=== PATIENT | female | born 1940 | race Caucasian/White ===

== ENCOUNTER 2016-07-27 10:32 | Emergency (ER) | payer MEDICARE ==
[2016-07-27 12:21] VITALS: BP 112/47
--- NOTE | 2016-07-27 12:37 | UC ---
Abdominal Pain Female HPI - HPI Summary HPI Summary: Patient has had 2 days of loose watery stool accompanied by fever. SHe has not eaten solid food since , she is able to keep liquids down. - History of Current Complaint Chief Complaint: UCGI Stated Complaint: DIARRHEA Time Seen by Provider: 07/27/16 12:18 Hx Obtained From: Patient ?: No Onset/Duration: Sudden Onset, Lasting Days Timing: Constant Severity Initially: Moderate Severity Currently: Moderate Location: Diffuse - lower abdominal pain, Discrete At: RUQ Character: Cramping, Dull Aggravating Factor(s): Food Alleviating Factor(s): Nothing Associated Signs and Symptoms: Positive: Fever, Decreased Appetite, Diarrhea Allergies/Adverse Reactions: Allergies Allergy/AdvReac Type Severity Reaction Status Date / Time Amoxicillin Allergy Unknown Verified 07/27/16 11:14 Reaction Details Home Medications: Home Medications Acetaminophen [Eq Acetaminophen] 650 mg PO 07/27/16 [History] Loperamide CAP* [Imodium CAP*] 2 mg PO Q4H PRN 07/27/16 [History Confirmed 07/27] PMH/Surg Hx/FS Hx/Imm Hx Previously Healthy: Yes Cancer History Of: Denies: Breast Cancer - Surgical History Surgical History: Yes Surgery Procedure, Year, and Place: [id number] SURGERIES FOR - Social History Alcohol Use: Rare Substance Use Type: None Smoking Status (MU): Never Smoked Tobacco Review of Systems Constitutional: Fever, Fatigue Skin: Negative Eyes: Negative ENT: Negative Respiratory: Negative Cardiovascular: Negative Gastrointestinal: Abdominal Pain, Diarrhea Genitourinary: Negative Motor: Negative Neurovascular: Negative Musculoskeletal: Negative Neurological: Negative Psychological: Negative All Other Systems Reviewed And Are Negative: Yes Physical Exam Triage Information Reviewed: Yes Appearance: Well-Nourished, Ill-Appearing, Pain Distress Vital Signs: Initial Vital Signs Temp 98.9 F 07/27/16 11:08 Pulse 70 07/27/16 11:08 Resp 18 07/27/16 11:08 BP 111/59 07/27/16 11:08 Pulse Ox 97 07/27/16 11:08 Vital Signs Reviewed: Yes Eye Exam: Normal Eyes: Positive: Conjunctiva Clear ENT Exam: Normal ENT: Positive: Hearing grossly normal, Pharynx normal, TMs normal Dental Exam: Normal Neck exam: Normal Neck: Positive: Supple, Nontender, No Lymphadenopathy Respiratory Exam: Normal Respiratory: Positive: Chest non-tender, Lungs clear, Normal breath sounds Cardiovascular Exam: Normal Cardiovascular: Positive: RRR, No Murmur, Pulses Normal Abdomen Description: Positive: Other: - RUQ tenderness, palpable liver edge Bowel Sounds: Positive: Present Musculoskeletal Exam: Normal Musculoskeletal: Positive: Strength Intact, ROM Intact, No Edema Neurological Exam: Normal Neurological: Positive: Alert, Muscle Tone Normal Psychological Exam: Normal Skin Exam: Normal Abd Pain Female Course/Dx - Course Course Of Treatment: hx obtained, exam performed, meds reviewed, UA obtained, Stool culture sent, +guiac, stool was very bloody, liquid and lots of mucous, treated for diverticulitis. educated patient on disease process, recommend follow up with PCP at the beginning of next week, patient is in agreement. - Differential Dx/Diagnosis Differential Diagnosis: Appendicitis, Bowel Obstruction, Constipation, Diverticulitis, Gall Bladder Disease, Hepatitis, Irritable Bowel Syndrome Provider Diagnoses: diverticulitis. dehydration. fever Discharge - Discharge Plan Condition: Stable Disposition: HOME Patient Education Materials: Diverticulitis (ED), Diverticulitis Diet (ED) Additional Instructions: 1. Take the medication as prescribed. 2. Increase fluid intake and get plenty of rest 3. Continue to take your probiotic 4. Follow up with Dr. Uribe at the beginning of next week 5. We grover a CBC ( complete blood count) CMP ( for your elecrolyte level) Stool culture was sent
[2016-07-28 13:47] LABS: Hematocrit 40 % (35-47); Hemoglobin 13.7 g/dl (12.0-16.0); Mean Corpuscular HGB Conc 34 g/dl (31-36); Mean Corpuscular Hemoglobin 32 pg (27-31); Mean Corpuscular Volume 94 fL (80-97); Mean Platelet Volume 10 um3 (7.4-10.4); Red Blood Count 4.29 10^6/ul (4.0-5.4); Red Cell Distribution Width 13 % (10.5-15); White Blood Count 3.3 10^3/ul (3.5-10.8)
[2016-07-28 13:49] LABS: Add Diff/Slide Review? Slide Review Added; Comments Flag Yes
== END 2016-07-27 13:45 | disposition home or self-care (01) ==
LOC: UCEAST 10:32
DX: K57.92 Diverticulitis of intestine, part unspecified, without perforation or abscess without bleeding (principal); E86.0 Dehydration; R50.9 Fever, unspecified; Z88.1 Allergy status to other antibiotic agents
CPT/HCPCS: 36415; 80053; 81003; 82270; 85025; 87045; 87046; 87077; 87899; 99212; G0463

== ENCOUNTER 2016-08-10 10:25 | Emergency (ER) | payer MEDICARE ==
--- NOTE | 2016-08-10 11:40 | ED ---
Abdominal Pain/Female - HPI Summary HPI Summary: 76F presents with diarrhea for 2 weeks. She states diarrhea started after returning for [place]. see as seen at urgent care where stool cultures came back positive for salmonella so she was treated with cipro. Initially they thought she had diverticulitis so started on cipro and flagyl. told to stop flagyl after got culture. admits to fever 99-101. denies any nausea or vomiting. States only has pain when has bowel movement. spoke with dr myrick 5 days ago and started on imodium. States that while was taking antibiotic felt better but then after stopped symptoms got worst. She states her stool is full of mucus and foul smelling. She admits to decrease in appetite. - History of Current Complaint Chief Complaint: EDBrenda Stated Complaint: FEVER/ABD PAIN Time Seen by Provider: 08/10/16 11:26 Pain Intensity: 2 Allergies/Adverse Reactions: Allergies Allergy/AdvReac Type Severity Reaction Status Date / Time Amoxicillin Allergy Unknown Verified 07/27/16 11:14 Reaction Details PMH/Surg Hx/FS Hx/Imm Hx Endocrine/Hematology History: Denies: Hx Diabetes Cardiovascular History: Denies: Hx Hypertension Sensory History: Reports: Hx Cataracts - BILATERAL, Hx Contacts or Glasses - GLASSES Denies: Hx Hearing Aid Opthamlomology History: Reports: Hx Cataracts - BILATERAL, Hx Contacts or Glasses - GLASSES - Cancer History Hx Chemotherapy: No Hx Radiation Therapy: No - Surgical History Surgery Procedure, Year, and Place: [id number] SURGERIES FOR Hx Anesthesia Reactions: No Infectious Disease History: No Infectious Disease History: Denies: Traveled Outside the [place] in Last 30 Days - Family History Known Family History: Positive: Other - no h/o of uc and crohns - Social History Alcohol Use: Rare Substance Use Type: Reports: None Smoking Status (MU): Never Smoked Tobacco Review of Systems Negative: Fever Negative: Chest Pain Negative: Shortness Of Breath Positive: Abdominal Pain - when has BM, Diarrhea. Negative: Vomiting, Nausea Negative: dysuria, flank pain All Other Systems Reviewed And Are Negative: Yes Physical Exam Triage Information Reviewed: Yes Vital Signs On Initial Exam: Initial Vitals Temp Pulse Resp BP Pulse Ox 100.6 F 79 24 128/94 100 08/10/16 10:26 08/10/16 10:26 08/10/16 10:26 08/10/16 10:26 08/10/16 10:26 Vital Signs Reviewed: Yes Appearance: Positive: Well-Appearing Skin: Positive: Warm, Dry Head/Face: Positive: Normal Head/Face Inspection Eyes: Positive: Normal, Conjunctiva Clear ENT: Positive: Normal ENT inspection, Pharynx normal, TMs normal, Other - dry mucous membranes Respiratory/Lung Sounds: Positive: Clear to Auscultation, Breath Sounds Present Cardiovascular: Positive: Normal, RRR Abdomen Description: Positive: Nontender, Soft Bowel Sounds: Positive: Present Diagnostics - Vital Signs Vital Signs Temp Pulse Resp BP Pulse Ox 08/10/16 10:26 100.6 F 79 24 128/94 100 - Laboratory Result Diagrams: 08/10/16 11:40 08/10/16 11:40 Lab Statement: Any lab studies that have been ordered have been reviewed, and results considered in the medical decision making process. - CT abdomen CT Interpretation: Positive (See Comments) - IMPRESSION: 1. CHOLELITHIASIS. 2. MILD BILIARY DILATATION. 3. LARGE AMOUNT OF STOOL WITHIN THE DISTAL COLON, WITH A RELATIVELY FEATURELESS PROXIMAL AND MID COLON WHICH MAY REFLECT COLITIS. 4. 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 CT Interpretation Completed By: Radiologist Re-Evaluation - Re-Evaluation First Eval Re-Evaluation Time: 13:15 Change: Worse Comment: having rigors with temp, will give tyenlol Abdominal Pain Fem Course/Dx - Course Course Of Treatment: 76F presents with diarrhea for a two weeks. initally had samonella and was treated with cipro and seemed to feel better but then diarrhea got worst. was placed on imodium by dr myrick 5 days. admits to fever. Denies any nausea or vomiting. on exam abdomen nontender. labs: 12.9, normal kidney function, c difficule positive, CT shows stool and cholelithasis. no RUQ pain on exam. had fever 102 in ED gave Tyenlol and temp 99.9. BP went 129/73 to 115/47 after 2 lit[address] IV[address] with [address] billingsley and said talk to hosiptalist. Dr Hernandez will see in ED. dr hernandez recommends d/c home. will send home on flagyl. patient understands and agrees with plan - Diagnoses Differential Diagnosis: Positive: Diverticulitis, Urinary Tract Infection, Other - c difficle Provider Diagnoses: Clostridium difficile colitis Discharge - Discharge Plan Condition: Good Disposition: HOME Prescriptions: Metronidazole [Flagyl 500 MG TAB] 500 mg PO TID #27 tab traMADol TAB* [Ultram*] 25 mg PO Q6HR PRN #16 tab MDD 4 PRN Reason: Pain Patient Education Materials: Clostridium Difficile Infection (ED) Referrals: Raffy Uribe MD [Primary Care Provider] - Additional Instructions: Stop imodium Take flagyl three times a day for 14 days, first dose given in ED Wash hands frequently, hand sanitize does not work Take Tylenol for pain every 6 hours, use tramadol for severe pain ever 6 hours as needed Drink plenty of fluids, can try some pedialyte for electrolytes Follow up with primary within 7 days Return to ED if develop profuse vomiting, or any new or worsening symptoms
[2016-08-10 11:49] LABS: Hematocrit 40 % (35-47); Hemoglobin 13.2 g/dl (12.0-16.0); Mean Corpuscular HGB Conc 33 g/dl (31-36); Mean Corpuscular Hemoglobin 31 pg (27-31); Mean Corpuscular Volume 93 fL (80-97); Mean Platelet Volume 9 um3 (7.4-10.4); Red Blood Count 4.27 10^6/ul (4.0-5.4); Red Cell Distribution Width 13 % (10.5-15); White Blood Count 12.1 10^3/ul (3.5-10.8)
[2016-08-10] MEDS: NS 0.9% 1000 ML* 2,000 ML IV ONE (11:55)
[2016-08-10 12:07] LABS: Albumin 3.8 g/dL (3.2-5.2); BUN/Creatinine Ratio 16.5 (8-20); Calcium 8.9 mg/dL (8.6-10.3); EGFR African American 84.1 (>60); EGFR Non-African American 65.4 (>60); Globulin 3.2 g/dL (2-4); Potassium 4.1 mmol/L (3.5-5.0); Total Bilirubin 0.9 mg/dL (0.2-1.0)
[2016-08-10] MEDS ORDERED: Iohexol 300* (CONTRAST) 10 ML SDV IV ONE (12:44)
[2016-08-10] MEDS ORDERED: Acetaminophen TAB* 325 MG PO ONE (12:44)
--- NOTE | 2016-08-10 14:25 | RAD ---
CLINICAL HISTORY: Persistent diarrhea, lower abdominal pain COMPARISON: None TECHNIQUE: Multiple contiguous axial CT scans were obtained of the abdomen and pelvis after the administration of intravenous contrast. Coronal and sagittal multiplanar reformations are submitted for review. Oral contrast was administered. Delayed images were obtained through the abdomen and pelvis. FINDINGS: LUNG BASES: The lung bases are clear. LIVER: The liver is normal in shape, size, contour, and attenuation. BILE DUCTS: There is mild ectasia of the common duct with minimal intrahepatic biliary dilatation. GALLBLADDER: The gallbladder is distended. A gallstone is noted. There is no pericholecystic inflammatory change. PANCREAS: The pancreas is normal, without mass or ductal dilatation. SPLEEN: Normal in size and appearance. UPPER GI TRACT: Evaluation of the gastrointestinal tract is limited by incomplete gastric distention. The upper GI tract is unremarkable. SMALL BOWEL AND MESENTERY: The small bowel is normal in contour, course, and caliber. There is no obstruction or dilatation. COLON: There is a large amount of stool within the distal colon. The mid and proximal colon are relatively featureless, filled with liquid stool ADRENALS: Normal bilaterally. KIDNEYS: The kidneys are normal in shape, size, contour, and axis. There is no hydronephrosis or nephrolithiasis. BLADDER: The bladder is smooth in contour. PELVIC ORGANS: There is prominence of vascularity along the broad ligaments bilaterally with enlargement of the gonadal veins bilaterally, greater on the left than on the right. AORTA: There is mild atherosclerosis. IVC: Unremarkable LYMPH NODES: There is no lymphadenopathy by size criteria. ABDOMINAL WALL: There is no evidence for abdominal wall hernia. BONES AND SOFT TISSUES: There are mild diffuse degenerative changes. OTHER: None IMPRESSION: 1. CHOLELITHIASIS. 2. MILD BILIARY DILATATION. 3. LARGE AMOUNT OF STOOL WITHIN THE DISTAL COLON, WITH A RELATIVELY FEATURELESS PROXIMAL AND MID COLON WHICH MAY REFLECT COLITIS. 4. 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
[2016-08-10] MEDS ORDERED: metroNIDAZOLE TAB* 250 MG PO ONE (14:51)
[2016-08-10 15:08] VITALS: BP 115/47
--- NOTE | 2016-08-10 16:03 | CONSULT ---
Subjective Date of Service: 08/10/16 Interval History: 76 yo F with hx of dementia, GERD, depression p/w diarrhea, fever and abdominal pain. Patient had diarrhea with some blood mixed in and was seen at on 07/27. It was felt she may have diverticulitis and she was rx Cipro/Flagyl. Her stool cx then came back with salmonella so the flagyl was stopped (reportedly only took one dose) and the Cipro was continued. She had some improvement in her diarrhea and completed the course however over the last few days she has had worsening diarrhea, abdominal pain. She was rx Imodium for the diarrhea but symptoms worsened. Here in the ED she was diagnosed with C diff and CT scan showed some retained stool in the colon along with signs of colitis. She has been able to tolerate liquids, little food intake, no N/V. Family History: Findings - Unremarkable Social History: Findings - No hx of tobacco, EtOH or drug use Past Medical History: Findings - Early onset dementia, GERD, depression Review of Systems - Measurements Intake and Output: Intake and Output Last 24 Hours 08/08/16 08/09/16 08/10/16 08/11/16 06:59 06:59 06:59 06:59 Intake Total 1999 Balance 1999 Weight 52.163 kg Intake: IV Fluids 1999 Other: Date of Last Bowel t Movement - Review of Systems Constitutional Symptoms: Positive: Fever Dermatology: Positive: Normal HEENT: Positive: Normal Eyes: Positive: Normal Thyroid: Positive: Normal Pulmonary: Positive: Normal Cardiology: Positive: Normal Gastroenterology: Positive: Abdominal Pain, Diarrhea Negative: Nausea, Vomiting Genital - Urinary: Positive: Normal Musculoskeletal: Negative: Joint Pain Endocrinology: Positive: Normal Hematologic/Lymphatic: Negative: Anemia Neurology: Positive: Normal Psychiatry: Positive: Normal Objective Vital Signs 08/10/16 08/10/16 08/10/16 10:26 12:00 12:29 Temperature 100.6 F 102 F 100.2 F Pulse Rate 79 Respiratory 24 Rate Blood Pressure 128/94 (mmHg) O2 Sat by Pulse 100 Oximetry 08/10/16 08/10/16 08/10/16 12:45 14:22 15:07 Temperature 102.4 F 101.8 F 99.9 F Pulse Rate 57 Respiratory 16 Rate Blood Pressure 115/47 (mmHg) O2 Sat by Pulse 99 Oximetry Oxygen Devices in Use Now: None Appearance: Elderly, F, laying in bed in NAD Eyes: No Scleral Icterus Ears/Nose/Mouth/Throat: Mucous Membranes Moist Neck: NL Appearance and Movements; NL JVP Respiratory: Symmetrical Chest Expansion and Respiratory Effort, Clear to Auscultation Cardiovascular: NL Sounds; No Murmurs; No JVD, RRR Abdominal: - - Soft, non-distended, mild TTP in lower quadrants, BS+, no rebound /guarding Lymphatic: No Cervical Adenopathy Extremities: No Edema Skin: No Rash or Ulcers Neurological: Alert and Oriented x 3 Result Diagrams: 08/10/16 11:40 08/10/16 11:40 Microbiology and Other Data: Microbiology 08/10/16 12:25 C. difficile DNA Amplification - Final Stool 027 Presumptive NEGATIVE Toxigenic C.diff POSITIVE 08/10/16 12:25 Stool Gross Appearance - Final Stool 08/10/16 12:25 Stool Occult Blood (MIGUEL) - Final Stool Assessment/Plan - Billing C diff colitis in a 76 yo F with hx of early onset dementia, GERD, depression with recent treatment for salmonella. I think the patient likely developed C diff after the course of Cipro and then symptoms likely worsened with the addition of Imodium. Patient seems to be keeping up with intake as evidenced by her relatively normal labs and vitals. No significant leukocytosis. I do not think she needs admission at this time as long as she can keep up with her stool output. Would treat with 2 weeks of oral Flagyl and STOP imodium. Would send home with analgesic as well.
== END 2016-08-10 16:37 | disposition home or self-care (01) ==
LOC: ED 10:25
DX: A04.7 Enterocolitis due to Clostridium difficile (principal); R10.9 Unspecified abdominal pain; R19.7 Diarrhea, unspecified
CPT/HCPCS: 36415; 74177; 80053; 82272; 83605; 83690; 85025; 86141; 87040; 87045; 87046; 87077; 87493; 87899; 99283; A9270-GY; Q9967

== ENCOUNTER 2016-10-16 16:20 | Emergency (ER) | payer MEDICARE ==
[2016-10-16] MEDS ORDERED: Ondansetron INJ* 2 MG/ML VIAL IV ONE (17:41)
[2016-10-16] MEDS ORDERED: NS 0.9% 1000 ML* 2,000 ML IV ONE (17:41)
[2016-10-16 19:11] LABS: Hematocrit 38 % (35-47); Hemoglobin 12.9 g/dl (12.0-16.0); Mean Corpuscular HGB Conc 34 g/dl (31-36); Mean Corpuscular Hemoglobin 32 pg (27-31); Mean Corpuscular Volume 95 fL (80-97); Mean Platelet Volume 8 um3 (7.4-10.4); Red Blood Count 3.98 10^6/ul (4.0-5.4); Red Cell Distribution Width 14 % (10.5-15); White Blood Count 5.9 10^3/ul (3.5-10.8)
[2016-10-16 19:42] LABS: Albumin 3.8 g/dL (3.2-5.2); BUN/Creatinine Ratio 13.2 (8-20); C Reactive Protein 1.18 mg/L (< 5.00); EGFR African American 108.8 (>60); EGFR Non-African American 84.6 (>60); Globulin 2.8 g/dL (2-4); Potassium 4.1 mmol/L (3.5-5.0); Total Bilirubin 0.4 mg/dL (0.2-1.0); Total Protein 6.6 g/dL (6.4-8.9)
[2016-10-16] MEDS ORDERED: Pantoprazole IV* 40 MG IV ONE (19:42)
[2016-10-16 20:46] LABS: Urine Bacteria Absent (Absent); Urine Bilirubin Negative (Negative); Urine Glucose Negative (Negative); Urine Nitrite Negative (Negative)
[2016-10-16 22:35] VITALS: BP 133/54
--- NOTE | 2016-10-17 05:03 | ED ---
Gladis Zamora Alok, scribed for Prieto Hudson MD on 10/16/16 at 1940 . GI/ HPI - HPI Summary HPI Summary: 76F presents to the ED for N/V since this morning. Pt has been dx with salmonella/C.diff 2 month ago and has been reporting diarrhea, fever, chills since then. Pt also notes epigastric pain since today. Pt states that she has had 5-6 BMs [employer] and states they were dark, black stools. Pt also notes vomiting light colored emesis today. Pt denies CP, SOB. Pt denies blood in stool or [id number] emesis. Pt is currently on bactrim and flagyl for C.diff. Pt states that since her arrival to the ED her abd pain, fever, chills and nausea have significantly improved. PMHx includes h/o salmonella, C.diff, anxiety, and depression. - History of Current Complaint Chief Complaint: EDNauseaVomitDiarrh Stated Complaint: VOMITING-DX CDIFF Hx Obtained From: Patient Onset/Duration: Started Days Ago, Still Present Timing: Constant Severity: Moderate Current Severity: Moderate Pain Intensity: 0 Location of Pain: Epigastric Associated Signs and Symptoms: Positive: Nausea, Vomiting, Diarrhea, Fever, Chills, Abdominal Pain, Other: - black stools. Negative: kowwoi-ebcraw-debl emesis, SOB. Negative: Blood w/Stool, Chest Pain - Allergy/Home Medications Allergies/Adverse Reactions: Allergies Allergy/AdvReac Type Severity Reaction Status Date / Time Amoxicillin Allergy Unknown Verified 07/27/16 11:14 Reaction Details PMH/Surg Hx/FS Hx/Imm Hx Endocrine/Hematology History: Denies: Hx Diabetes Cardiovascular History: Denies: Hx Hypertension History: Denies: Hx Renal Disease Sensory History: Reports: Hx Cataracts - BILATERAL, Hx Contacts or Glasses - GLASSES Denies: Hx Hearing Aid Opthamlomology History: Reports: Hx Cataracts - BILATERAL, Hx Contacts or Glasses - GLASSES - Cancer History Hx Chemotherapy: No Hx Radiation Therapy: No - Surgical History Surgery Procedure, Year, and Place: [id number] SURGERIES FOR Hx Anesthesia Reactions: No Infectious Disease History: No Infectious Disease History: Denies: Traveled Outside the [place] in Last 30 Days - Family History Known Family History: Positive: Other - no h/o of uc and crohns - Social History Occupation: Retired Lives: With Family Alcohol Use: Rare Substance Use Type: Reports: None Smoking Status (MU): Never Smoked Tobacco Review of Systems Positive: Fever, Chills Negative: Chest Pain Negative: Shortness Of Breath Positive: Abdominal Pain, Vomiting, Diarrhea, Nausea, Other - black stools. Negative: Jwgtho-hdjoda-qhau emesis All Other Systems Reviewed And Are Negative: Yes Physical Exam - Summary Physical Exam Summary: The patient is well-nourished in no acute distress and in no acute pain. The skin is warm and dry with decreased skin turgor. HEENT: The head is normocephalic and atraumatic. The pupils are equal and reactive. The conjunctivae not icteric and without drainage. Nares are patent and without drainage. Mouth reveals dry mucous membranes and the throat is without erythema and exudate. Neck is supple with full range of motion and non-tender. There are no carotid bruits. There is no neck vein distension. Respiratory: Chest is non-tender. Lungs are clear to auscultation and breath sounds are symmetrical and equal. Cardiovascular: Heart is regular rate and rhythm. There is no murmur or rub auscultated. There is no peripheral edema and pulses are symmetrical and equal. Abdomen: The abdomen is soft and tender to the epigastric and right upper quadrant with no guarding or distention. There are normal bowel sounds heard in all four quadrants and there is no organomegaly palpated. Musculoskeletal: There is no back pain noted. Extremities are non-tender with full range of motion. There is a 3 second capillary refill. There is no peripheral edema or calf tenderness elicited. Neurological: Patient is alert and oriented to person, place and time. The patient has symmetrical motor strength in all four extremities. Cranial nerves are grossly intact. Deep tendon reflexes are symmetrical and equal in all four extremities. Psychiatric: The patient has an appropriate affect and does not exhibit any anxiety or depression. Triage Information Reviewed: Yes Vital Signs On Initial Exam: Initial Vitals Temp Pulse Resp BP Pulse Ox 98.2 F 62 20 156/57 100 10/16/16 16:23 10/16/16 16:23 10/16/16 16:23 10/16/16 16:23 10/16/16 16:23 Vital Signs Reviewed: Yes - Soumya Coma Scale Coma Scale Total: 15 Diagnostics - Vital Signs Vital Signs Temp Pulse Resp BP Pulse Ox 10/16/16 19:00 64 98 10/16/16 18:30 66 137/69 100 10/16/16 18:00 62 137/54 100 10/16/16 17:34 61 100 10/16/16 17:32 139/61 10/16/16 17:31 99 F 60 16 139/61 100 10/16/16 16:23 98.2 F 62 20 156/57 100 - Laboratory Lab Results: Lab Results 10/16/16 10/16/16 10/16/16 Range/Units 19:00 19:00 19:00 WBC 5.9 (3.5-10.8) 10^3/ul RBC 3.98 L (4.0-5.4) 10^6/ul Hgb 12.9 (12.0-16.0) g/dl Hct 38 (35-47) % MCV 95 (80-97) fL MCH 32 H (27-31) pg MCHC 34 (31-36) g/dl RDW 14 (10.5-15) % Plt Count 283 (150-450) 10^3/ul MPV 8 (7.4-10.4) um3 Neut % (Auto) 73.2 (38-83) % Lymph % (Auto) 19.8 L (25-47) % [place] % (Auto) 6.4 (1-9) % Eos % (Auto) 0.1 (0-6) % Baso % (Auto) 0.5 (0-2) % Absolute Neuts (auto) 4.3 (1.5-7.7) 10^3/ul Absolute Lymphs (auto) 1.2 (1.0-4.8) 10^3/ul Absolute Monos (auto) 0.4 (0-0.8) 10^3/ul Absolute Eos (auto) 0 (0-0.6) 10^3/ul Absolute Basos (auto) 0 (0-0.2) 10^3/ul Absolute Nucleated RBC 0 10^3/ul Nucleated RBC % 0 INR (Anticoag Therapy) 1.09 (0.89-1.11) APTT 28.5 (26.0-36.3) seconds Sodium 135 (133-145) mmol/L Potassium 4.1 (3.5-5.0) mmol/L Chloride 103 (101-111) mmol/L Carbon Dioxide 24 (22-32) mmol/L Anion Gap 8 (2-11) mmol/L BUN 9 (6-24) mg/dL Creatinine 0.68 (0.51-0.95) mg/dL Est GFR ( Amer) 108.8 (>60) Est GFR (Non-Af Amer) 84.6 (>60) BUN/Creatinine Ratio 13.2 (8-20) Glucose 110 H (70-100) mg/dL Lactic Acid (0.5-2.0) mmol/L Calcium 9.0 (8.6-10.3) mg/dL Total Bilirubin 0.40 (0.2-1.0) mg/dL AST 30 (13-39) U/L ALT 23 (7-52) U/L Alkaline Phosphatase 40 (34-104) U/L Troponin I 0.00 (<0.04) ng/mL C-Reactive Protein 1.18 (< 5.00) mg/L Total Protein 6.6 (6.4-8.9) g/dL Albumin 3.8 (3.2-5.2) g/dL Globulin 2.8 (2-4) g/dL Albumin/Globulin Ratio 1.4 (1-3) Lipase 38 (11.0-82.0) U/L Urine Color Urine Appearance Urine pH (5-9) Ur Specific Finger (1.010-1.030) Urine Protein (Negative) Urine Ketones (Negative) Urine Blood (Negative) Urine Nitrate (Negative) Urine Bilirubin (Negative) Urine Urobilinogen (Negative) Ur Leukocyte Esterase (Negative) Urine WBC (Auto) (Absent) Urine RBC (Auto) (Absent) Ur Squamous Epith Cells (Absent) Urine Bacteria (Absent) Hyaline Casts (Absent) Urine Glucose (Negative) 10/16/16 10/16/16 Range/Units 19:00 20:26 WBC (3.5-10.8) 10^3/ul RBC (4.0-5.4) 10^6/ul Hgb (12.0-16.0) g/dl Hct (35-47) % MCV (80-97) fL MCH (27-31) pg MCHC (31-36) g/dl RDW (10.5-15) % Plt Count (150-450) 10^3/ul MPV (7.4-10.4) um3 Neut % (Auto) (38-83) % Lymph % (Auto) (25-47) % [place] % (Auto) (1-9) % Eos % (Auto) (0-6) % Baso % (Auto) (0-2) % Absolute Neuts (auto) (1.5-7.7) 10^3/ul Absolute Lymphs (auto) (1.0-4.8) 10^3/ul Absolute Monos (auto) (0-0.8) 10^3/ul Absolute Eos (auto) (0-0.6) 10^3/ul Absolute Basos (auto) (0-0.2) 10^3/ul Absolute Nucleated RBC 10^3/ul Nucleated RBC % INR (Anticoag Therapy) (0.89-1.11) APTT (26.0-36.3) seconds Sodium (133-145) mmol/L Potassium (3.5-5.0) mmol/L Chloride (101-111) mmol/L Carbon Dioxide (22-32) mmol/L Anion Gap (2-11) mmol/L BUN (6-24) mg/dL Creatinine (0.51-0.95) mg/dL Est GFR ( Amer) (>60) Est GFR (Non-Af Amer) (>60) BUN/Creatinine Ratio (8-20) Glucose (70-100) mg/dL Lactic Acid 1.0 (0.5-2.0) mmol/L Calcium (8.6-10.3) mg/dL Total Bilirubin (0.2-1.0) mg/dL AST (13-39) U/L ALT (7-52) U/L Alkaline Phosphatase (34-104) U/L Troponin I (<0.04) ng/mL C-Reactive Protein (< 5.00) mg/L Total Protein (6.4-8.9) g/dL Albumin (3.2-5.2) g/dL Globulin (2-4) g/dL Albumin/Globulin Ratio (1-3) Lipase (11.0-82.0) U/L Urine Color Yellow Urine Appearance Clear Urine pH 6.0 (5-9) Ur Specific Finger 1.014 (1.010-1.030) Urine Protein Negative (Negative) Urine Ketones 2+ H (Negative) Urine Blood Negative (Negative) Urine Nitrate Negative (Negative) Urine Bilirubin Negative (Negative) Urine Urobilinogen Negative (Negative) Ur Leukocyte Esterase Trace H (Negative) Urine WBC (Auto) Trace(0-5/hpf) (Absent) Urine RBC (Auto) Trace(0-2/hpf) (Absent) Ur Squamous Epith Cells Present H (Absent) Urine Bacteria Absent (Absent) Hyaline Casts Present H (Absent) Urine Glucose Negative (Negative) Result Diagrams: 10/16/16 19:00 10/16/16 19:00 Lab Statement: Any lab studies that have been ordered have been reviewed, and results considered in the medical decision making process. Re-Evaluation - Re-Evaluation First Eval Re-Evaluation Time: 21:55 Change: Improved Comment: Patient is feeling better, still notes slight epigastric pain. GIGU Course/Dx - Course Course Of Treatment: 76 y/o female presents to the ED with new onset of N/V symptoms while currenlty being treated for C.diff. Pt was given IV fluids, Protonix and Zofran for nausea. Patient had bloodwork and UA done. Urine and Stool cultures sent. Pt was discharged home with instructions to discontinue her Flagyl and start her Vancomycin 125 mg po qid x 10 days - Diagnoses Differential Diagnoses - Female: Other - dehydration, c.diff colitis, salmonella Provider Diagnoses: Adverse reaction to Flagyl Discharge - Discharge Plan Condition: Stable Disposition: HOME Prescriptions: Vancomycin CAP* 125 mg PO QID #40 cap Patient Education Materials: Adverse Drug Reaction (ED) Referrals: Raffy Uribe MD [Primary Care Provider] - Additional Instructions: Please discontinue your Flagyl Start you Vancomycin Take Zofran as needed for nausea Take Omeprazol as needed for acid reflux The documentation as recorded by the Gladis berry Alok accurately reflects the service I personally performed and the decisions made by me, Prieto Hudson MD.
--- NOTE | 2016-10-17 11:07 | PN ---
Progress Note - Progress Note Date of Service: 10/16/16 Note: Patient was seen last night in ED for symptoms of nausea and vomiting due to adverse reaction of C diff treatment (flagyl). Stool culture results obtained andw ee negative for c diff at this time. fecal lactoferrin WBC was positive. no further action or treatment required at this time.
== END 2016-10-16 22:35 | disposition home or self-care (01) ==
LOC: ED 16:20
DX: T37.3X5A Adverse effect of other antiprotozoal drugs, initial encounter (principal); R11.2 Nausea with vomiting, unspecified; R19.7 Diarrhea, unspecified; R50.9 Fever, unspecified; R10.9 Unspecified abdominal pain; Y92.9 Unspecified place or not applicable
CPT/HCPCS: 36415; 80053; 81003; 81015; 82270; 83605; 83630; 83690; 84484; 85025; 85610; 85730; 86140; 87045; 87046; 87077; 87086; 87328; 87329; 87493; 87899; 96374; 96375; 99284; J2405